=== PATIENT | female | born 1970 | race Caucasian/White ===

== ENCOUNTER 2016-11-30 08:40 | Outpatient (CLI) | payer BC | END 2016-11-30 08:47 | LOC: D.MAMMO 08:40 | DX: Z12.31 Encounter for screening mammogram for malignant neoplasm of breast (principal) ==

== ENCOUNTER 2017-02-25 12:31 | Emergency (ER) | payer BC ==
[2017-02-25 13:57] LABS: BASOPHILS 0.4 % (0-2); EOSINOPHILS 1.2 % (0-7); HEMATOCRIT 39.4 % (36.0-48.0); HEMOGLOBIN 13.6 g/dL (12-16); IMMATURE GRANULOCYTES 0.2 % (0-5); LYMPHOCYTES 33.5 % (15-50); MCH 33.8 pg (26.0-34.0); MCHC 34.5 g/dL (31.0-37.0); MEAN PLATELET VOLUME 9.9 fL (7.4-10.4); MONOCYTES 4.8 % (2-11); NEUTROPHILS 59.9 % (40-80); PLATELET COUNT 168 10x3/uL (130-400); RBC 4.02 10x6/uL (4.00-5.40); WBC 8.1 10x3/uL (4.8-10.8)
[2017-02-25 14:15] LABS: ALBUMIN 3.6 g/dL (3.4-5.0); ALKALINE PHOSPHATASE 56 U/L (46-116); ALT (SGPT) 14 U/L (10-68); BILIRUBIN - TOTAL 0.32 mg/dL (0.2-1.3); CALC OSMOLALITY 275 mosm/kg (275-300); CALCIUM 8.2 mg/dL (8.5-10.1); CARBON DIOXIDE 26.3 mmol/L (21.0-32.0); CHLORIDE - SERUM 104 mmol/L (98-107); CREATININE - SERUM 0.8 mg/dL (0.6-1.3); GLUCOSE 89 mg/dL (74-106); POTASSIUM - SERUM 4.1 mmol/L (3.5-5.1); PROTEIN - SERUM 6.5 g/dL (6.4-8.2); SODIUM 137 mmol/L (136-145); UREA NITROGEN 20 mg/dL (7-18); eGFR NON AFRICAN AMERICAN 82 mL/min (90-120)
[2017-02-25 14:18] LABS: CREATINE KINASE 44 UL (21-215); TROPONIN-I < 0.017 ng/mL (0.000-0.060)
[2017-02-25 14:21] LABS: APPEARANCE HAZY (CLEAR); BILIRUBIN NEGATIVE (NEGATIVE); COLOR YELLOW (YELLOW); GLUCOSE NEGATIVE (NEGATIVE); KETONE NEGATIVE (NEGATIVE); LEUKOCYTE ESTERASE NEGATIVE (NEGATIVE); NITRITE NEGATIVE (NEGATIVE); PROTEIN NEGATIVE (NEGATIVE); SPECIFIC GRAVITY 1.015 (1.005-1.020); UROBILINOGEN NORMAL (NORMAL)
[2017-02-25 14:25] LABS: UDS - AMPHET POSITIVE QUAL (NEGATIVE); UDS - BARB NEGATIVE QUAL (NEGATIVE); UDS - BENZO NEGATIVE QUAL (NEGATIVE); UDS - COCAINE NEGATIVE QUAL (NEGATIVE); UDS - METH NEGATIVE QUAL (NEGATIVE); UDS - OPIATE POSITIVE QUAL (NEGATIVE); UDS - PCP NEGATIVE QUAL (NEGATIVE); UDS - THC POSITIVE QUAL (NEGATIVE)
== END 2017-02-25 16:48 | disposition home or self-care (01) ==
LOC: D.ER 12:31
PROVIDERS: Nurse Practitioner Family
DX: I10 Essential (primary) hypertension (principal); R51 Headache; F41.9 Anxiety disorder, unspecified; K21.9 Gastro-esophageal reflux disease without esophagitis; F90.9 Attention-deficit hyperactivity disorder, unspecified type; R42 Dizziness and giddiness

== ENCOUNTER 2019-03-03 23:00 | Emergency (ER) | payer MEDICAID ==
[~2019-03-03] VITALS: Ht 167.6 cm; Wt 75.0 kg
[2019-03-03 23:03] VITALS: Ht 167.6 cm; Wt 75.0 kg
[2019-03-03] MEDS ORDERED: SINGULAIR10 MG PO (23:06)
[2019-03-03] MEDS ORDERED: KEFLEX500 MG PO (23:06)
[2019-03-03] MEDS ORDERED: ZANAFLEX6 MG PO (23:07)
[2019-03-03] MEDS ORDERED: MUPIROCIN22 GM TOPICAL (23:07)
[2019-03-03] MEDS ORDERED: VOLTAREN75 MG PO (23:46)
[2019-03-04 00:16] VITALS: BP 135/74
== END 2019-03-04 00:16 | disposition home or self-care (01) ==
LOC: D.ER 23:00
DX: L03.317 Cellulitis of buttock (principal); J34.0 Abscess, furuncle and carbuncle of nose